=== PATIENT | female | born 1940 | race Caucasian/White ===

== ENCOUNTER 2016-11-18 08:38 | Emergency (ER) | payer BC ==
[2016-11-18 09:09] VITALS: TEMP 97.6; BMI 21.4
[2016-11-18 09:34] LABS: URINE APPEARANCE Clear; URINE BILIRUBIN Negative (NEGATIVE); URINE BLOOD Trace-intact (NEGATIVE); URINE COLOR YELLOW; URINE GLUCOSE (UA) Negative (NEGATIVE); URINE KETONE Negative (NEGATIVE); URINE LEUK ESTERASE TRACE (NEGATIVE); URINE NITRITE Negative (NEGATIVE); URINE PROTEIN Negative (NEGATIVE); URINE UROBILINOGEN 0.2 (0.2-1.0)
[2016-11-18 09:54] LABS: URINE BACTERIA FEW /hpf (NEGATIVE); URINE RBC 0-3 /hpf (0-3); URINE WBC 0-3 (3-5)
[2016-11-18 09:55] LABS: BASOPHIL 0.6 % (0-2.0); EOSINOPHIL 1.3 % (0-4.5); MCH 28.1 pg (25.7-33.7); MCHC 32.9 g/dl (32.0-36.0); MEAN CELL VOLUME 85.3 fl (80-96); MEAN PLT VOLUME 7.1 fl (7.5-11.1); NEUTROPHILS 64.7 % (42.8-82.8); PLATELET COUNT 327 K/MM3 (134-434); RDW 12.9 % (11.6-15.6); WHITE BLOOD COUNT 5.9 K/mm3 (4.0-10.8)
--- NOTE | 2016-11-18 09:58 | PDOC ---
History of Present Illness - General Chief Complaint: Pain Stated Complaint: LUQ ABD PAIN Time Seen by Provider: 11/18/16 09:11 Past History - Travel Traveled outside of the country in the last 30 days: No Close contact w/someone who was outside of country & ill: No - Past Medical History Allergies/Adverse Reactions: Allergies Allergy/AdvReac Type Severity Reaction Status Date / Time Penicillins AdvReac Intermediate Rash Verified 07/19/11 11:08 Shellfish AdvReac Intermediate Rash Verified 07/19/11 11:08 Home Medications: Ambulatory Orders Amlodipine Besylate 5 mg PO DAILY 07/19/11 Clindamycin [Cleocin] 300 mg PO TID 07/19/11 Sulfamethoxazole-Tmp Ds Tablet 1 PO BID 07/19/11 Valsartan [Diovan] 40 mg PO DAILY #30 tablet 11/18/16 Anemia: No Asthma: No Cancer: No Cardiac Disorders: No Hx Myocardial Infarction: No CVA: No COPD: No CHF: No DVT: No Dementia: No Diabetes: No Dialysis: No GI Disorders: No Disorders: No HTN: Yes Hypercholesterolemia: Yes HIV: No Kidney Stones: No Liver Disease: No Psychiatric Problems: No - Psycho/Social/Smoking Cessation Hx Anxiety: No Suicidal Ideation: No Smoking Status: No Smoking History: Never smoked Have you smoked in the past 12 months: No Number of Cigarettes Smoked Daily: 0 Information on smoking cessation initiated: No Hx Alcohol Use: No Drug/Substance Use Hx: No Substance Use Type: None Review of Systems - Review of Systems Constitutional: No: Symptoms Reported, See HPI, Chills, Diaphoresis, Fever, Loss of Appetite, Malaise, Night Sweats, Weakness, Weight Stable, Unintentional Wgt. Loss, Unexplained wgt Loss, Other HEENTM: No: Symptoms Reported, See HPI, Eye Pain, Blurred Vision, Tearing, Recent change in vision, Double Vision, Cataracts, Ear Pain, Ocular Prothesis, Ear Discharge, Nose Pain, Nose Congestion, Tinnitus, Nose Bleeding, Hearing Loss , Throat Pain, Throat Swelling, Mouth Pain, Dental Problems, Difficulty Swallowing, Mouth Swelling, Other Respiratory: No: Symptoms reported, See HPI, Cough, Orthopnea, Shortness of Breath, SOB with Exertion, SOB at Rest, Stridor, Wheezing, Productive cough, Hemoptysis, Other Cardiac (ROS): No: Symptoms Reported, See HPI, Chest Pain, Edema, Irregular Heart Rate, Lightheadedness, Palpitations, Syncope, Chest Tightness, Other ABD/GI: Yes: Other (LEFT SIDED ABD PAIN FOR A WEEK). No: Symptoms Reported, See HPI, Abdominal Distended, Abd. Pain w/ defecation, Blood Streaked Bowels, Constipated, Diarrhea, Difficulty Swallowing, Nausea, Poor Appetite, Poor Fluid Intake, Rectal Bleeding, Vomiting, Indigestion, Abdominal cramping, Tarry Stools : No: Symptoms Reported, See HPI, Burning, Dysuria, Discharge, Frequency, Flank Pain, Hematuria, Incontinence, Pain, Urgency, Testicular Mass, Testicular Swelling, Lesions, Testicular Pain, Other Musculoskeletal: No: Symptoms Reported, See HPI, Back Pain, Gout, Joint Pain, Joint Swelling, Muscle Pain, Muscle Weakness, Neck Pain, Joint Stiffness, Other Integumentary: No: Symptoms Reported, See HPI, Bruising, Change in Color, Change in Hair/Nails, Dryness, Erythema, Flushing, Lesions, Lumps, Pallor, Pruritus, Rash, Sweating, Other Neurological: No: Symptoms reported, See HPI, Headache, Numbness, Paresthesia, Pre-Existing Deficit, Seizure, Tingling, Tremors, Weakness, Unsteady Gait, Ataxia, Dizziness, Other Psychiatric: Yes: Stressors (STRESSED AT HOME WITH LIVING SITUATION; SMALL APT; COUSIN IS HER ROOMMATE) Endocrine: No: Symptoms Reported, See HPI, Excessive Sweating, Flushing, Intolerance to Cold, Intolerance to Heat, Increased Hunger, Increased Thirst, Increased Urine, Unexplained Weight Gain, Unexplained Weight Loss, Change in Weight, Other *Physical Exam - Vital Signs Last Vital Signs Temp Pulse Resp BP Pulse Ox 97.6 F 73 20 171/101 100 11/18/16 08:39 11/18/16 08:39 11/18/16 08:39 11/18/16 08:39 11/18/16 08:39 - Physical Exam General Appearance: Yes: Nourished, Appropriately Dressed HEENT: positive: EOMI, INDIRA, Normal ENT Inspection, Normal Voice, Symmetrical, TMs Normal, Pharynx Normal Neck: positive: Trachea midline, Normal Thyroid, Supple Respiratory/Chest: positive: Chest Tender, Lungs Clear, Normal Breath Sounds Cardiovascular: positive: Regular Rhythm, Regular Rate, S1, S2 Gastrointestinal/Abdominal: positive: Normal Bowel Sounds, Flat, Soft. negative : Pulsatile Mass, Decreased BS, Distended, Guarding, Rebound, Tenderness Musculoskeletal: positive: Normal Inspection Extremity: positive: Normal Capillary Refill, Normal Inspection Integumentary: positive: Normal Color, Warm Neurologic: positive: scrap handler II-XII NML intact, Fully Oriented, Alert, Normal Mood/ Affect, Normal Response, Motor Strength 5/5 Deep Tendon Reflexes: Knee (L): 2+, Knee (R): 2+, Bicep (L): 2+, Bicep (R): 2+ ED Treatment Course - LABORATORY CBC & Chemistry Diagram: 11/18/16 09:46 11/18/16 09:46 - ADDITIONAL ORDERS Additional order review: Laboratory Results 11/18/16 09:11 Urine Color Yellow Urine Appearance Clear Urine pH 7.0 Ur Specific [place] 1.015 Urine Protein Negative Urine Glucose (UA) Negative Urine Ketones Negative Urine Blood Trace-intact H Urine Nitrite Negative Urine Bilirubin Negative Urine Urobilinogen 0.2 - RADIOLOGY Radiology Studies Ordered: Category Date Time Status ABDOMEN FLAT & UPRIGHT [RAD] Stat Radiology 11/18/16 09:12 Taken Medical Decision Making - Medical Decision Making 11/18/16 09:55 PT COMES WITH 1 WEEKS OF LEFT SIDED ABD PAIN. NO FLANBK PAIN AND NO DYSURIA AND NO HEMATURIA. NO BLOOD IN STOOL AND NO PAIN WITH DEFECATION. SHE HAS HAD LOOSE STOOLS X PAST 2 DAYS. PT HAS NO PMHX. SHE WAS TOLD SHE HAS HTN, NUT SHE TALKES NO HTN MEDS. SHE HAS NEVER HAD SURGERIES. SHE QUIT SMOKING 40 YEARS AGO. SHE DRINKS 2 GLASSES OF WINE DAILY AND SHE HAS DECREASED APPETITE. SHE RETIRED FROM A [employer]. PT IS HEALTHY. NO FEVER, NO CHILLS, NO APPETITE CHANGES. PT IS ABLE TO EAT AND DRINK AND MOVE BOWELS. EXAM IS NORMAL IN THE ER. I WILL CHECK LABS AND FUA XRAY. NO SIGN OF OBSTRUCTION ON XRAY, PT HAS GASSY BOWEL PATTERN. LABS PENIDING. PT'S BP IS ELEVATED. WE WILL RECHECK IT, AND ENCOURAGE HER TO TAKE HER BP MEDS. 11/18/16 18:47 Lbas and UA normal; FUA abd normal. Pt given diovan in the ER and I sent a 1 month supply to her pharmacy. Pt reassured. She was given food to eat. Pt likely has dyspepsia and gas pain. *DC/Admit/Observation/Transfer Diagnosis at time of Disposition: Gas pain, HTN (hypertension) - Discharge Dispostion Disposition: HOME Condition at time of disposition: Stable Admit: No - Prescriptions Prescriptions: Valsartan [Diovan] 40 mg PO DAILY #30 tablet - Referrals Referrals: Jenna Restrepo [Staff Physician] - Trung Knapp MD [Staff Physician] - - Patient Instructions Printed Discharge Instructions: DI for Dyspepsia, Two Gram Sodium Diet
[2016-11-18 10:17] LABS: ALBUMIN 3.9 g/dl (3.5-5.0); ALK PHOS 85 U/L (32-92); AMYLASE 112 U/L (25-125); ANION GAP 6 (8-16); BILIRUBIN,TOTAL 0.7 mg/dl (0.2-1.0); CALCIUM 9.4 mg/dl (8.4-10.2); CO2 26 mmol/L (22-28); GLUCOSE,RANDOM 120 mg/dl (74-106); SGOT/AST 26 U/L (10-42); SGPT/ALT 19 U/L (10-40); TOT PROT 7.4 g/dl (6.4-8.3)
[2016-11-18] MEDS ORDERED: VALSARTAN 40 MG TABLET (FP) PO ONE (10:47)
[2016-11-18] MEDS ORDERED: MAG HYDROX/AL HYDROX/SIMETH 30 ML UNIT-DOSE CUP PO ONE (11:03)
[2016-11-18 11:55] VITALS: BP 180/106; PULSE 69
== END 2016-11-18 12:44 | disposition home or self-care (01) ==
LOC: FER 08:38
DX: R14.1 Gas pain (principal); I10 Essential (primary) hypertension; E78.00 Pure hypercholesterolemia, unspecified
CPT/HCPCS: 36415; 74020-TC; 80053; 81003; 81015; 82150; 83690; 85025; 99282-25

== ENCOUNTER 2021-11-18 19:25 | Emergency (ER) | payer BC, OTHER ==
[2021-11-18 19:45] VITALS: TEMP 98.1; BMI 19.7
[2021-11-18 20:03] LABS: HEMATOCRIT 40.9 % (32.4-45.2); HEMOGLOBIN 13.9 G/dL (10.7-15.3); MCH 29.3 pg (25.7-33.7); MCHC 34.1 g/dl (32.0-36.0); MEAN CELL VOLUME 86.1 fl (80-96); MEAN PLT VOLUME 7.2 fl (7.5-11.1); PLATELET COUNT 278.4 10^3/uL (134-434); RBC 4.75 10^6/uL (3.60-5.2); RDW 14.8 % (11.6-15.6); WHITE BLOOD COUNT 6.6 10^3/uL (4.0-10.8)
[2021-11-18 20:09] LABS: INR 1.07 (0.83-1.09); PROTHROMBIN TIME (PATIENT) 12.3 SEC (9.7-13.0)
[2021-11-18 20:16] LABS: ALBUMIN 3.6 g/dl (3.4-5.0); BILIRUBIN,TOTAL 0.4 mg/dl (0.2-1); CALCIUM 9.2 mg/dl (8.5-10); CREATININE 0.9 mg/dl (0.55-1.3)
[2021-11-18 20:19] LABS: PLATELET ESTIMATE ADEQUATE
[2021-11-18 21:51] VITALS: BP 155/90; PULSE 76; RESP 18
== END 2021-11-18 22:43 | disposition home or self-care (01) ==
LOC: FER 19:25
DX: R55 Syncope and collapse (principal)
CPT/HCPCS: 36415; 71045-TC-FY; 80053; 80307; 81003; 84484; 85025; 85610; 87086; 93005; 99285-25; C9803-CS; U0003; U0005